=== PATIENT | male | born 1970 | race Caucasian/White ===

== ENCOUNTER 2018-12-18 12:16 | Emergency (ER) | payer OTHER ==
[2018-12-18 12:54] LABS: ADD MAN DIFF? NO
[2018-12-18 13:01] LABS: WHITE BLOOD COUNT 9.4 10^3/ul (4.8-10.8)
[2018-12-18 13:01] LABS: BASOPHILS % 0.3 % (0.0-2.0); EOSINOPHILS # 0.5 10^3/ul (0.0-0.5); HEMATOCRIT 27.4 % (42.0-52.0); HEMOGLOBIN 9.4 g/dl (14.0-18.0); LYMPHOCYTES # 0.9 10^3/ul (0.8-2.9); LYMPHOCYTES % 9.9 % (15.0-51.0); MEAN CORPUSCULAR HEMOGLOBIN 29.7 pg (29.0-33.0); MEAN CORPUSCULAR HGB CONC 34.3 g/dl (32.0-37.0); MEAN CORPUSCULAR VOLUME 86.7 fl (82.0-101.0); MEAN PLATELET VOLUME 10.1 fl (7.4-10.4); MONOCYTE # 0.7 10^3/ul (0.3-0.9); MONOCYTES % 7.7 % (0.0-11.0); NEUTROPHIL # 7.1 10^3/ul (1.6-7.5); NEUTROPHILS % 75.6 % (39.0-77.0); PLATELET COUNT 123 10^3/UL (140-415); RED BLOOD COUNT 3.16 10^6/ul (4.70-6.10)
[2018-12-18] MEDS: SOD CHLORIDE 0.9% 500 ML IV (13:01)
[2018-12-18 13:19] LABS: INR 1.33; PROTIME 16.6 Sec (11.9-14.9); PT RATIO 1.3
[2018-12-18 13:20] LABS: PARTIAL THROMBOPLASTIN TIME 43.7 Sec (23.0-35.0)
[2018-12-18 13:23] LABS: AMMONIA 20 umol/l (9-30)
[2018-12-18 13:23] LABS: ALANINE AMINOTRANSFERASE 29 IU/L (13-69); ALBUMIN 2.4 g/dl (3.3-4.9); ALBUMIN/GLOBULIN RATIO 0.51; ALKALINE PHOSPHATASE 132 IU/L (42-121); ANION GAP 14 (5-13); ASPARTATE AMINO TRANSFERASE 51 IU/L (15-46); BILIRUBIN,INDIRECT 1.8 mg/dl (0-1.1); BILIRUBIN,TOTAL 4.1 mg/dl (0.2-1.3); BLOOD UREA NITROGEN 60 mg/dl (7-20); CALCIUM 8.8 mg/dl (8.4-10.2); CARBON DIOXIDE 18 mmol/L (21-31); CHLORIDE 96 mmol/L (97-110); CREATININE 2.89 mg/dl (0.61-1.24); Estimated GFR 24 mL/min (>60); GLUCOSE 149 mg/dl (70-220); POTASSIUM 4.7 mmol/L (3.5-5.1); SODIUM 128 mmol/L (135-144); TOTAL PROTEIN 7.1 g/dl (6.1-8.1)
[2018-12-18 13:35] LABS: TROPONIN-I < 0.012 ng/ml (0.000-0.120)
[2018-12-18 14:51] LABS: ADD UMIC NO; UR ASCORBIC ACID 40 mg/dL (NEGATIVE); UR BILIRUBIN (Dip) NEGATIVE (NEGATIVE); UR BLOOD (Dip) NEGATIVE (NEGATIVE); UR CLARITY CLEAR (CLEAR); UR COLOR AMBER (YELLOW); UR GLUCOSE (Dip) NEGATIVE (NEGATIVE); UR KETONES (Dip) NEGATIVE (NEGATIVE); UR LEUKOCYTE ESTERASE (Dip) NEGATIVE Leu/ul (NEGATIVE); UR NITRITE (Dip) NEGATIVE (NEGATIVE); UR SPECIFIC GRAVITY (Dip) 1.016 (1.003-1.030); UR TOTAL PROTEIN (Dip) NEGATIVE (NEGATIVE); UR UROBILINOGEN (Dip) 1+ mg/dL (NEGATIVE)
== END 2018-12-18 20:49 | disposition home or self-care (01) ==
LOC: E/R 12:16
DX: E86.0 Dehydration (principal); E87.1 Hypo-osmolality and hyponatremia; N28.9 Disorder of kidney and ureter, unspecified; R40.2142 Coma scale, eyes open, spontaneous, at arrival to emergency department; R40.2242 Coma scale, best verbal response, confused conversation, at arrival to emergency department; R40.2362 Coma scale, best motor response, obeys commands, at arrival to emergency department; Z87.19 Personal history of other diseases of the digestive system
CPT/HCPCS: 36415; 70450; 71045; 80053; 81003; 82140; 82962; 84484; 85025; 85610; 85730; 87040; 93005; 99285-25

== ENCOUNTER 2018-12-19 21:04 | Inpatient (IN) | payer OTHER ==
[2018-12-19] MEDS: SODIUM CHLORIDE 0.9% 1L BAG IV* (21:52)
[2018-12-19 22:02] LABS: ADD MAN DIFF? NO
[2018-12-19 22:12] LABS: WHITE BLOOD COUNT 15.7 10^3/ul (4.8-10.8)
[2018-12-19 22:12] LABS: ABNORMAL IP MESSAGE 1; BASOPHILS % 0.2 % (0.0-2.0); EOSINOPHILS # 0.1 10^3/ul (0.0-0.5); EOSINOPHILS % 0.8 % (0.0-7.0); HEMATOCRIT 24.7 % (42.0-52.0); HEMOGLOBIN 8.6 g/dl (14.0-18.0); LYMPHOCYTES # 0.8 10^3/ul (0.8-2.9); LYMPHOCYTES % 4.8 % (15.0-51.0); MEAN CORPUSCULAR HEMOGLOBIN 29.9 pg (29.0-33.0); MEAN CORPUSCULAR HGB CONC 34.8 g/dl (32.0-37.0); MEAN CORPUSCULAR VOLUME 85.8 fl (82.0-101.0); MEAN PLATELET VOLUME 9.4 fl (7.4-10.4); MONOCYTE # 0.9 10^3/ul (0.3-0.9); MONOCYTES % 5.5 % (0.0-11.0); NEUTROPHIL # 13.8 10^3/ul (1.6-7.5); NEUTROPHILS % 87.8 % (39.0-77.0); PLATELET COUNT 98 10^3/UL (140-415); POSITIVE DIFF @See below; RED BLOOD COUNT 2.88 10^6/ul (4.70-6.10); RED CELL DISTRIBUTION WIDTH 16.9 % (11.5-14.5)
[2018-12-19 22:31] LABS: INR 1.48; PT RATIO 1.4
[2018-12-19 22:32] LABS: PARTIAL THROMBOPLASTIN TIME 39.5 Sec (23.0-35.0)
[2018-12-19 22:34] LABS: ALANINE AMINOTRANSFERASE 33 IU/L (13-69); ALBUMIN 2.2 g/dl (3.3-4.9); ALBUMIN/GLOBULIN RATIO 0.52; ALKALINE PHOSPHATASE 152 IU/L (42-121); ANION GAP 14 (5-13); ASPARTATE AMINO TRANSFERASE 51 IU/L (15-46); BILIRUBIN,INDIRECT 1.4 mg/dl (0-1.1); BILIRUBIN,TOTAL 2.7 mg/dl (0.2-1.3); BLOOD UREA NITROGEN 62 mg/dl (7-20); CALCIUM 8.4 mg/dl (8.4-10.2); CARBON DIOXIDE 17 mmol/L (21-31); CHLORIDE 101 mmol/L (97-110); CREATININE 2.85 mg/dl (0.61-1.24); Estimated GFR 24 mL/min (>60); GLUCOSE 172 mg/dl (70-220); LIPASE 462 U/L (23-300); POTASSIUM 3.6 mmol/L (3.5-5.1); SODIUM 132 mmol/L (135-144); TOTAL PROTEIN 6.4 g/dl (6.1-8.1)
[2018-12-19 22:42] LABS: TROPONIN-I < 0.012 ng/ml (0.000-0.120)
[2018-12-19] MEDS: ALBUMIN HUMAN 5% 250 ML IV ×2 (22:46→23:56)
[2018-12-19 22:52] LABS: AMMONIA 19 umol/l (9-30)
[2018-12-19] MEDS: PIPER-TAZO 3.375 GM IV (PMX) 100 ML IVPB (22:55)
[2018-12-19] MEDS: LACTULOSE 30ML CUP NGT (23:05)
[2018-12-19] MEDS: LORAZEPAM 2 MG INJ IV (23:44)
[2018-12-20] MEDS ORDERED: ONDANSETRON 4 MG INJ IV (00:30)
[2018-12-20] MEDS ORDERED: ACETAMINOPHEN 325 MG TAB PO (00:30)
[2018-12-20] MEDS: PIPER-TAZO 2.25 GM (PMX) 50 ML IVPB ×2 (11:08→21:09)
[2018-12-20] MEDS: FLUOXETINE 20 MG CAP PO (11:09)
[2018-12-20] MEDS: RIFAXIMIN 550 MG TAB PO ×2 (11:09→21:07)
[2018-12-20] MEDS: ARIPIPRAZOLE 10 MG TAB PO (11:09)
[2018-12-20] MEDS: SOD CHLORIDE 0.9% 1,000 ML IV (11:12)
[2018-12-20] MEDS: LACTULOSE 30ML CUP PO ×2 (14:13→21:09)
[2018-12-20] MEDS: PROPRANOLOL 10 MG TAB PO (21:07)
[2018-12-21 01:38] LABS: ADD UMIC NO; UR ASCORBIC ACID 40 mg/dL (NEGATIVE); UR BILIRUBIN (Dip) NEGATIVE (NEGATIVE); UR BLOOD (Dip) NEGATIVE (NEGATIVE); UR CLARITY CLEAR (CLEAR); UR COLOR YELLOW (YELLOW); UR GLUCOSE (Dip) NEGATIVE (NEGATIVE); UR KETONES (Dip) NEGATIVE (NEGATIVE); UR LEUKOCYTE ESTERASE (Dip) NEGATIVE Leu/ul (NEGATIVE); UR NITRITE (Dip) NEGATIVE (NEGATIVE); UR SPECIFIC GRAVITY (Dip) 1.017 (1.003-1.030); UR TOTAL PROTEIN (Dip) NEGATIVE (NEGATIVE); UR UROBILINOGEN (Dip) NEGATIVE (NEGATIVE)
[2018-12-21] MEDS: SOD CHLORIDE 0.9% 1,000 ML IV (02:13)
[2018-12-21 04:37] LABS: FLD COLOR YELLOW; FLD WBC 302 /cmm
[2018-12-21 04:38] LABS: FLD MN% 56.9 %; FLD PMN% 43.1 %
[2018-12-21 04:41] LABS: FLD RBC 0 /uL
[2018-12-21 04:42] LABS: FLD CLARITY SLIGHTLY HAZY
[2018-12-21] MEDS: LACTULOSE 30ML CUP PO ×2 (05:04→13:30)
[2018-12-21] MEDS: PIPER-TAZO 2.25 GM (PMX) 50 ML IVPB ×2 (05:04→13:30)
[2018-12-21 07:31] LABS: ADD MAN DIFF? NO
[2018-12-21 07:34] LABS: WHITE BLOOD COUNT 7.1 10^3/ul (4.8-10.8)
[2018-12-21 07:34] LABS: ABNORMAL IP MESSAGE 1; BASOPHILS % 0.1 % (0.0-2.0); EOSINOPHILS # 0.3 10^3/ul (0.0-0.5); EOSINOPHILS % 3.5 % (0.0-7.0); HEMATOCRIT 22.9 % (42.0-52.0); HEMOGLOBIN 7.7 g/dl (14.0-18.0); LYMPHOCYTES # 0.8 10^3/ul (0.8-2.9); MEAN CORPUSCULAR HEMOGLOBIN 29.6 pg (29.0-33.0); MEAN CORPUSCULAR HGB CONC 33.6 g/dl (32.0-37.0); MEAN CORPUSCULAR VOLUME 88.1 fl (82.0-101.0); MEAN PLATELET VOLUME 8.9 fl (7.4-10.4); MONOCYTE # 0.6 10^3/ul (0.3-0.9); MONOCYTES % 7.9 % (0.0-11.0); NEUTROPHIL # 5.5 10^3/ul (1.6-7.5); NEUTROPHILS % 76.5 % (39.0-77.0); PLATELET COUNT 74 10^3/UL (140-415); POSITIVE DIFF @See below; RED CELL DISTRIBUTION WIDTH 17.5 % (11.5-14.5)
[2018-12-21 07:55] LABS: ANION GAP 15 (5-13); BLOOD UREA NITROGEN 49 mg/dl (7-20); CALCIUM 8.4 mg/dl (8.4-10.2); CARBON DIOXIDE 17 mmol/L (21-31); CHLORIDE 107 mmol/L (97-110); CREATININE 2.43 mg/dl (0.61-1.24); Estimated GFR 29 mL/min (>60); GLUCOSE 93 mg/dl (70-220); POTASSIUM 3.4 mmol/L (3.5-5.1); SODIUM 139 mmol/L (135-144)
[2018-12-21] MEDS: PROPRANOLOL 10 MG TAB PO ×2 (09:00→20:05)
[2018-12-21] MEDS: ARIPIPRAZOLE 10 MG TAB PO (09:12)
[2018-12-21] MEDS: FLUOXETINE 20 MG CAP PO (09:12)
[2018-12-21] MEDS: RIFAXIMIN 550 MG TAB PO ×2 (09:13→20:05)
[2018-12-22 10:47] LABS: FLD TYPE ASCITES
== END 2018-12-21 21:06 | disposition home or self-care (01) | DRG 433 ==
LOC: E/R 21:04 → TEL 12-20 00:11
DX: K70.40 Alcoholic hepatic failure without coma (principal); R18.8 Other ascites; N17.9 Acute kidney failure, unspecified; F10.27 Alcohol dependence with alcohol-induced persisting dementia; N18.4 Chronic kidney disease, stage 4 (severe); D63.8 Anemia in other chronic diseases classified elsewhere; E86.0 Dehydration; F32.9 Major depressive disorder, single episode, unspecified; I12.9 Hypertensive chronic kidney disease with stage 1 through stage 4 chronic kidney disease, or unspecified chronic kidney disease
CPT/HCPCS: 36415; 71045; 80048; 80053; 81003; 82140; 83605; 83690; 84484; 85025; 85610; 85730; 87040; 87070; 89051; 93005; 96361; 96365; 96368; 96375; 99285-25